=== PATIENT | female | born 1965 | race Caucasian/White ===

== ENCOUNTER 2017-10-21 22:17 | Observation (INO) ==
[2017-10-21 23:01] LABS: Basophils # 0.1 K/mcL (0.0-0.2); Basophils % 0.7 %; Eosinophils # 0.4 K/mcL (0.0-0.6); Eosinophils % 3.1 %; Hematocrit 40.9 % (35.3-44.9); Hemoglobin 13.3 g/dL (11.5-15.4); Immature Granulocytes % 0.3 % (0-4); Lymphocytes # 3.9 K/mcL (0.6-4.6); Lymphocytes % 32.9 %; Mean Corpuscular HGB Conc 32.5 g/dL (31.6-35.5); Mean Corpuscular Hemoglobin 27.8 pg (28.0-33.3); Mean Corpuscular Volume 85.6 fL (83.0-100.0); Mean Platelet Volume 10.3 fL (9.4-12.4); Monocytes # 0.8 K/mcL (0.0-1.3); Monocytes % 6.8 %; Neutrophils # 6.7 K/mcL (1.6-8.9); Platelet Count 341 K/mcL (140-400); Red Blood Count 4.78 M/mcL (3.82-4.97); Red Cell Distribution Width 13.3 % (11.5-14.5); Segmented Neutrophils % 56.2 %
[2017-10-21 23:05] LABS: Prothrombin Time 10.9 Seconds (9.4-12.1)
[2017-10-21 23:08] LABS: Activated Partial Thrombo Time 31.3 Seconds (26.0-36.0)
[2017-10-21 23:12] LABS: BUN/Creatinine Ratio 24 (6-26); Blood Urea Nitrogen 12 mg/dL (6-20); Calcium 9.1 mg/dL (8.6-10.3); Carbon Dioxide 23 mEq/L (23-29); Chloride 104 mEq/L (98-107); Glucose 208 mg/dL (70-105); Osmolality,Calculated 288 (280-300); Potassium 3.8 mEq/L (3.5-5.1); Sodium 136 mEq/L (136-145); eGFR For African Americans > 60 (> 60); eGFR For Non-African Americans > 60 (> 60)
[2017-10-21 23:14] LABS: Troponin I < 0.03 ng/mL (< 0.04)
--- NOTE | 2017-10-21 23:20 | Emergency Department Note ---
Disposition Clinical Impression: Chest pain Qualifiers: Chest pain type: unspecified Qualified Code(s): R07.9 - Chest pain, unspecified Type 2 diabetes mellitus Qualifiers: Diabetes mellitus complication status: without complication Diabetes mellitus intermodal dispatcher insulin use: without nursing home use Qualified Code(s): E11.9 - Type 2 diabetes mellitus without complications Disposition: Admitted As Inpatient Condition: Good Referrals: Oren Cates DO [Primary Care Provider] - Time of Disposition: 23:46 Chest Pain HPI - General Chief Complaint: ED Chest Pain Stated Complaint: Chest Pain Time Seen by Provider: 10/21/17 22:21 Source: patient Limitations: no limitations Vital Signs Reviewed: Yes Nursing Notes Reviewed: Yes - History of Present Illness HPI Narrative: Ms Sexton is a 52 yo F who presents with "achy and sharp" left upper chest pain that radiates to her neck, arm, and back. Patient denies cardiac hx, smoking, htn, hld, or family members who've had early age cardiac disease. Patient states that she was just getting done eating dinner and driving home when her pain started. Severity is 5-7/10. She denies that the pain changes with position, inhalation, or is reproducible when she pushes on it. She's had intermittent chest pain for the last month or so. Previously her pain has resolved with ASA, but she has not taken ASA today to resolve her symptoms. Patient denies SOB, nausea, vomiting, fever, chills, weight loss, orthopnea, PND , leg swelling or chest trauma. Severity scale (1-10): 4 - Related Data Allergies Allergy/AdvReac Type Severity Reaction Status Date / Time Penicillins Allergy Hives Verified 10/21/17 22:19 All systems ED: reviewed and negative except as stated. Review of Systems: As Per HPI Chest Pain PMH - Past Medical History Medical history: Reports: diabetes, GERD, hypertension Psychiatric history: Reports: no psych history - Social History Smoking Status: Never smoker Alcohol use: Reports: none Drug use: Reports: none Physical Exam - General Limitations: no limitations General appearance: alert, in no apparent distress - Head Head exam: atraumatic, normocephalic, normal inspection - Eye Eye exam: Present: normal appearance, PERRL, EOMI - ENT ENT exam: normal exam, normal oropharynx, mucous membranes moist - Chest Chest inspection: Present: normal inspection, symmetric chest wall rise, other ( pain is not reproducible. No visible trauma to chest wall.) - Respiratory Respiratory exam: Present: normal lung sounds bilaterally. Absent: respiratory distress, wheezes, stridor, accessory muscle use, prolonged expiratory phase - Cardiovascular Cardiovascular exam: Present: regular rate, normal rhythm, normal heart sounds. Absent: bradycardia, tachycardia, irregular rhythm, systolic murmur, diastolic murmur, rubs, gallop, JVD - Abdominal Exam Abdominal exam: Present: soft, Non-Tender. Absent: tenderness, distention, guarding, rebound, rigidity - Extremities Exam Extremities exam: Present: normal inspection, full ROM, normal capillary refill. Absent: tenderness, pedal edema Course Course Narrative: Cardiac workup pending. - Reevaluation(s) Reevaluation #1: Initial cardiac workup negative, but due to hx of HTN and diabetes will admit for further workup. Dr. Loya has accepted patient. Time: 00:36 Vital Signs Temperature 98.6 F 10/21/17 22:19 Pulse Rate 92 10/21/17 22:19 Respiratory Rate 16 10/21/17 22:19 Blood Pressure 161/97 10/21/17 22:19 O2 Sat by Pulse Oximetry 99 10/21/17 22:19 Temperature 98.6 F 10/21/17 22:19 Pulse Rate 100 10/22/17 00:49 Respiratory Rate 16 10/21/17 22:19 Blood Pressure 129/81 10/22/17 00:49 O2 Sat by Pulse Oximetry 96 10/22/17 00:49 Oxygen Delivery Oxygen Delivery Room Air Chest Pain - Medical Records Medical records reviewed: Yes I reviewed the patient's medical records. - Lab Data Lab results reviewed: Yes I reviewed the patient's lab results. Result diagrams: 10/21/17 22:29 10/21/17 22:29 Lab Results 10/21/17 10/21/17 10/21/17 Range/Units 22:29 22:29 22:29 WBC 11.9 H (4.3-11.1) K/mcL RBC 4.78 (3.82-4.97) M/mcL Hgb 13.3 (11.5-15.4) g/dL Hct 40.9 (35.3-44.9) % MCV 85.6 (83.0-100.0) fL MCH 27.8 L (28.0-33.3) pg MCHC 32.5 (31.6-35.5) g/dL RDW 13.3 (11.5-14.5) % Plt Count 341 (140-400) K/mcL MPV 10.3 (9.4-12.4) fL Immature Gran % 0.3 (0-4) % Seg Neutrophils % 56.2 % Lymphocytes % 32.9 % Monocytes % 6.8 % Eosinophils % 3.1 % Basophils % 0.7 % Neutrophils # 6.7 (1.6-8.9) K/mcL Lymphocytes # 3.9 (0.6-4.6) K/mcL Monocytes # 0.8 (0.0-1.3) K/mcL Eosinophils # 0.4 (0.0-0.6) K/mcL Basophils # 0.1 (0.0-0.2) K/mcL PT 10.9 (9.4-12.1) Seconds INR 1.0 APTT 31.3 (26.0-36.0) Seconds Sodium 136 (136-145) mEq/L Potassium 3.8 (3.5-5.1) mEq/L Chloride 104 (98-107) mEq/L Carbon Dioxide 23 (23-29) mEq/L BUN 12 (6-20) mg/dL Creatinine 0.49 L (0.60-1.20) mg/dL Est GFR ( Amer) > 60 (> 60) Est GFR (Non-Af Amer) > 60 (> 60) BUN/Creatinine Ratio 24 (6-26) Glucose 208 H (70-105) mg/dL Calculated Osmolality 288 (280-300) Calcium 9.1 (8.6-10.3) mg/dL Troponin I < 0.03 (< 0.04) ng/mL - Radiology Data Radiology results reviewed: Yes I reviewed the patient's radiology results. Chest X-Ray 10/21/17 22:41 IMPRESSION: Negative portable study. D/ / Martha Barba Cha, MD / Martha Barba Cha, MD Interpreting Provider: Martha Barba Cha, MD - EKG Data EKG attestation: Yes I reviewed and interpreted this EKG. EKG shows normal: sinus rhythm Rate: normal Rhythm: NSR When compared to previous EKG there are: no significant changes Interpretation: no acute changes, normal EKG Heart Score - Score History: Slightly Suspicious EKG: Normal Age: 45-65 Risk Factors: 1-2 risk factors Troponin: 1-3x normal limit HEART Score Total: 3 Attestation Statement - Attestation Attestation: I, Germán Duffy MD, personally evaluated this patient and discussed their management with the resident physician. I reviewed the resident's note and agree with the documented findings, medical decision making, and plan of care. 52-year-old female presents to the emergency department with a complaint of left -sided chest pain which she describes as a dull aching discomfort. Pain started about 8:30 this evening while driving. The pain radiates up into the left shoulder and the left side of the neck. Some nausea and mild shortness of breath. No diaphoresis. No prior history of any cardiac problems. She does have a history of hypertension and diabetes. Patient states that she had a similar episode about 2 weeks ago that was not as severe. She took a low-dose aspirin and went to bed and the pain resolved. She rated the pain a 4 out of 10 at the worst. At present she rates the pain a 2 out of 10. On examination patient is a well-developed well-nourished well-appearing female in no acute distress. She is alert and oriented 3. There is no cyanosis or diaphoresis. Chest is nontender to palpation. Breath sounds are clear and equal bilaterally. Heart regular rate and rhythm. Abdomen soft and nontender with normal bowel sounds. EKG shows a normal sinus rhythm with a rate of 89. No acute ST segment elevation or depression. No ischemic changes. Normal EKG. Chest x-ray negative. Labs reviewed. Troponin normal. Patient was given aspirin 324 mg and sublingual nitroglycerin. The hospitalist , Dr. Loya, was consulted and accepted admission of the patient.
[2017-10-22] MEDS ORDERED: Aspirin 81 MG TAB.CHEW PO STA (00:01)
[2017-10-22] MEDS ORDERED: Nitroglycerin 0.4 MG TAB.SUBL SL ONE (00:02)
[2017-10-22] MEDS ORDERED: *HR* OxyCODONE Immed Rel 5 MG TABLET PO PRN (03:01)
[2017-10-22] MEDS ORDERED: *HR* HYDROcodone/Acet 5/325 mg TABLET PO PRN (03:01)
[2017-10-22] MEDS ORDERED: Naloxone 0.4 MG/ML INJ IVP PRN (03:01)
[2017-10-22] MEDS ORDERED: Nitroglycerin 0.4 MG TAB.SUBL SL PRN (03:09)
--- NOTE | 2017-10-22 03:11 | Internal Med History&Physical ---
Date of Encounter: 10/22/17 Time of Encounter: 03:10 Assessment and Plan (1) Chest pain Current visit: Yes Status: Acute 52/female History of diabetes, hypertension, dyslipidemia, Admitted with chest pain. On examination: Heart/lung examination is within a normal limit. Assessment: Chest pain to rule out ACS. Plan: Admit as observation. Aspirin/metoprolol/statin/nitroglycerin. Echocardiogram. Cycle troponin. If 3 troponin negative/echocardiogram normal: Consider stress test. I have examined this patient in the emergency department to #1. Patient's and daughter were at bedside. Plan of care explained to them and then they verbalized understanding Qualifiers: Chest pain type: unspecified Qualified Code(s): R07.9 - Chest pain, unspecified (2) Hypertension Current visit: Yes Status: Acute Patient's blood pressure is within acceptable range. patient's home dose his lisinopril We will restart lisinopril. Qualifiers: Hypertension type: essential hypertension Qualified Code(s): I10 - Essential (primary) hypertension (3) Type 2 diabetes mellitus Current visit: Yes Status: Acute Patient is known to have a type 2 diabetes mellitus. Her recent hemoglobin A1c was 6.7. At this point we will hold her antidiabetic medication in the hospital setting. We will start her on low-dose insulin regimen. We will follow the recommendation from subcutaneous insulin order set Qualifiers: Diabetes mellitus complication status: without complication Diabetes mellitus half-way insulin use: without medical terminologist use Qualified Code(s): E11.9 - Type 2 diabetes mellitus without complications (4) DVT prophylaxis Current visit: Yes Status: Acute SCD: Medical decision making: Patient has a moderate to severe risk of worsening in spite of being on appropriate medication to the underlying complex comorbid conditions. Internal Medicine - H&P: HPI Chief complaint: Chest pain Admitted From: Emergency Dept Plans for Post Hospital Care: Home History of present illness: PCP: Dr Cates DM Educator follow up. 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 Patient was going home with her daughter after dinner and on her way to her home she started experiencing retrosternal/left precordial chest pain. This pain was achy and sharp in nature. The pain was radiating to her neck, arms and back. Patient has a strong family history of early age cardiac disease the pain was persistent. Patient denies nausea, vomiting, fever, chills , weight loss, orthopnea PND, leg swelling or chest trauma. Patient came to emergency room for further evaluation. Workup in the emergency department: Patient was evaluated. Basic labs were drawn. EKG was within acceptable range. First set of troponin was negative. Electrolytes and hemoglobin/hematocrit was stable. Reason for admission: Chest pain to rule out ACS. Heart score 3. Family history: Strong family history for early onset cardiac disease. Past Med Surg Social Fam HX - Past Medical History Medical history: diabetes, GERD, hypertension Psychiatric history: no psych history - Past Surgical History Surgical History: cholecystectomy - Social History Smoking Status: Never smoker Smokeless Tobacco Status: No Alcohol use: none Drug use: none - Family History Mother Hx Family Cardiac Disorders: Yes (HTN) Hx Family Respiratory Disorders: Yes (COPD) Hx Family Cancer: Yes (lung) Internal Medicine - H&P: Meds Insulin Degludec [Tresiba Flextouch U-100] 18 units SQ HS 10/22/17 [History] Lisinopril [Zestril] 10 mg PO DAILY 10/22/17 [History] Metformin HCl [Glucophage] 1,000 mg PO BID 10/22/17 [History] Victoza 3-Haja 1.8 units SQ DAILY 10/22/17 [History] 3 Allergy/AdvReac Type Severity Reaction Status Date / Time Penicillins Allergy Hives Verified 10/21/17 22:19 All Systems PM: A 10-system review of systems was performed and is negative for pertinent findings except as documented above in the HPI. - Constitutional Constitutional: no chills, no fever(s), no night sweats - EENT Eyes: no change in vision, no discharge, no pain, no photophobia Ears: no ear discharge, no ear pain, no tinnitus Nose, mouth and throat: no dysphagia, no nasal discharge, no neck pain, no sore throat - Cardiovascular Cardiovascular ROS IM: chest pain, diaphoresis, lightheadedness, palpitations, no dyspnea, no syncope - Respiratory Respiratory: no cough, no dyspnea, no wheezing, no excessive phlegm production - Gastrointestinal Gastrointestinal: no abdominal pain, no diarrhea, no hematemesis, no hematochezia, no melena, no nausea, no vomiting - Genitourinary Genitourinary: no change in urinary stream, no dysuria, no flank pain, no hematuria - Musculoskeletal Musculoskeletal ROS IM: no numbness, no tingling - Integumentary Integumentary IM: no rash, no unusual bruising - Neurological Neurological ROS: no confusion, no convulsions, no focal weakness, no numbness, no tingling, no tremor(s) - Hematologic/Lymphatic Hematologic/Lymphatic: no easy bruising - Constitutional Vitals: Temp Pulse Resp BP Pulse Ox 98.3 F 95 17 118/74 94 10/22/17 01:02 10/22/17 01:02 10/22/17 01:02 10/22/17 01:02 10/22/17 01:02 General appearance: Present: A&O X 3, pleasant, no acute distress, answers questions appropriately - Head Head exam: Present: atraumatic, normocephalic - Eye Eye exam: Present: PERRL, conjuntiva pink, sclera anicteric Pupils: Present: PERRL - Neck Neck exam general surgery: Present: supple, trachea midline. Absent: lymphadenopathy - Respiratory Respiratory exam: Present: CTAB. Absent: accessory muscle use, rales, rhonchi, wheezes - Cardiovascular Cardiovascular exam: Present: RRR, +S1, +S2. Absent: diastolic murmur, gallop, rubs, systolic murmur - GI/Abdominal GI/Abdominal exam: Present: normal bowel sounds, soft, no peritoneal signs. Absent: distended, tenderness - Extremities Exam Extremities exam: Present: warm, radial pulses palpable and symmetrical. Absent : calf tenderness, cyanotic, pedal edema - Neurological Exam Neurological exam: Present: CN II-XII intact, oriented X3, no focal deficits. Absent: pronater drift, facial droop, speech deficit - Skin Skin exam: Present: dry, intact Internal Med - H&P Results - Labs CBC & Chem 7: 10/21/17 22:29 10/21/17 22:29
[2017-10-22] MEDS ORDERED: D5% in Water 1,000 ML IVC PRN (03:24)
[2017-10-22] MEDS ORDERED: Dextrose Gel 15 GM/37.5 ML TUBE PO PRN ×2 (03:24)
[2017-10-22] MEDS ORDERED: *HR* Dextrose 50 % in Water (Syg) 50 ML SYRINGE IVP PRN (03:24)
[2017-10-22 04:34] LABS: Basophils # 0.1 K/mcL (0.0-0.2); Basophils % 0.8 %; Eosinophils # 0.4 K/mcL (0.0-0.6); Hematocrit 36.2 % (35.3-44.9); Hemoglobin 11.9 g/dL (11.5-15.4); Immature Granulocytes % 0.3 % (0-4); Immature Platelets 2.9 % (1.1-6.1); Lymphocytes # 3.8 K/mcL (0.6-4.6); Lymphocytes % 36.2 %; Mean Corpuscular HGB Conc 32.9 g/dL (31.6-35.5); Mean Corpuscular Volume 85.2 fL (83.0-100.0); Mean Platelet Volume 10.3 fL (9.4-12.4); Monocytes # 0.8 K/mcL (0.0-1.3); Monocytes % 8.1 %; Neutrophils # 5.3 K/mcL (1.6-8.9); Platelet Count 291 K/mcL (140-400); Red Blood Count 4.25 M/mcL (3.82-4.97); Red Cell Distribution Width 13.4 % (11.5-14.5); Segmented Neutrophils % 50.6 %
[2017-10-22 04:41] LABS: Activated Partial Thrombo Time 29.5 Seconds (26.0-36.0); INR 0.9
[2017-10-22 04:42] LABS: Alanine Aminotransferase 9 Units/L (7-52); Albumin 3.6 g/dL (3.5-5.7); Albumin/Globulin Ratio 1.8 (1.1-2.2); Alkaline Phosphatase 86 Units/L (34-104); Aspartate Amino Transferase 12 Units/L (13-39); BUN/Creatinine Ratio 30 (6-26); Bilirubin,Total 0.3 mg/dL (0.3-1.0); Blood Urea Nitrogen 12 mg/dL (6-20); Calcium 8.8 mg/dL (8.6-10.3); Carbon Dioxide 23 mEq/L (23-29); Chloride 106 mEq/L (98-107); Cholesterol 120 mg/dL (< 200); Glucose 112 mg/dL (70-105); HDL Cholesterol 30 mg/dL (40-59); LDL Cholesterol,Calculated 60 mg/dL (0-99); Magnesium 1.7 mg/dL (1.6-2.6); Osmolality,Calculated 285 (280-300); Phosphorous 4.2 mg/dL (2.7-4.5); Potassium 3.5 mEq/L (3.5-5.1); Sodium 137 mEq/L (136-145); Total Protein 5.6 g/dL (6.4-8.9); Triglycerides 148 mg/dL (< 150); eGFR For African Americans > 60 (> 60); eGFR For Non-African Americans > 60 (> 60)
[2017-10-22] MEDS: Aspirin Enteric Coated 81 MG Tablet PO SCH (08:50)
[2017-10-22] MEDS: Insulin LISPRO 300 UNITS/3 ML VIAL SQ SCH ×3 (08:52→17:31)
[2017-10-22] MEDS: Acetaminophen 325 MG TABLET PO PRN (09:03)
[2017-10-22] MEDS ORDERED: Acetaminophen/Butalbital/CaffeineTABLET PO ONE (11:04)
--- NOTE | 2017-10-22 15:06 | Internal Med Progress Note ---
Date of Encounter: 10/22/17 Time of Encounter: 11:00 - Assessment and plan (1) Chest pain Current Visit: Yes Status: Acute Assessment and plan: Pt presented to the emergency department after driving home from dinner with her daughter. She reports dull aching chest pain midsternal, radiating to his left back, left neck and shoulder. Pain was improved by rest and nitroglycerin. Pain was worsened by activity. Patient reports that she has been on Prevacid for years was recently changed to Protonix last week. Chest x-ray was negative for any acute disease process, and EKG is negative for any ST changes, normal sinus rhythm. Echocardiogram shows an LVEF of 55-60% with mild LVDD, mild MR. Patient's strong family history of coronary artery disease, personal history of hypertension, type 2 diabetes. Patient will have stress test tomorrow. Continue telemetry. Aspirin and nitroglycerin for chest pain Stress test tomorrow. Consider cardiology consult based on results. Qualifiers: Chest pain type: unspecified Qualified Code(s): R07.9 - Chest pain, unspecified (2) DVT prophylaxis Current Visit: Yes Status: Acute Assessment and plan: Encourage early ambulation. (3) Hypertension Current Visit: Yes Status: Acute Assessment and plan: Well-controlled. Continue home medications. Qualifiers: Hypertension type: essential hypertension Qualified Code(s): I10 - Essential (primary) hypertension (4) Type 2 diabetes mellitus Current Visit: Yes Status: Acute Assessment and plan: A1c 6.7% in August. Continue home medications. Qualifiers: Diabetes mellitus complication status: without complication Diabetes mellitus penitentiary insulin use: without termite control technician use Qualified Code(s): E11.9 - Type 2 diabetes mellitus without complications - Time Spent With Patient less than 15 minutes - Subjective Interval history: Pt was seen and assessed at 1100a.m. Pt is alert, awake, oriented, answers questions appropriately. She reports chest pain as a dull ache in the left chest with radiation to back/scapula and into left neck and left shoulder. STates that it is relieved with rest and somewhat with NTG in the ED, worsened by activity. Pt states that in the last week she has changed her PPI from Prevacid that she had been on for years to Protonix. She denies chest pain currently and denies SOB, n/v/d, diaphoresis, abd pain, peripheral edema, or dizziness. - Constitutional Vitals: Temp Pulse Resp BP Pulse Ox 97.9 F 77 16 125/82 96 10/22/17 11:39 10/22/17 11:39 10/22/17 11:39 10/22/17 11:39 10/22/17 11:39 General appearance: Present: A&O X 3, pleasant, no acute distress, answers questions appropriately Internal Medicine: Result - Labs CBC & Chem 7: 10/22/17 03:23 10/22/17 03:23 Labs: Short CBC 10/22/17 Range/Units 03:23 WBC 10.4 (4.3-11.1) K/mcL Hgb 11.9 (11.5-15.4) g/dL Hct 36.2 (35.3-44.9) % Plt Count 291 (140-400) K/mcL Neutrophils # 5.3 (1.6-8.9) K/mcL BMP 10/22/17 03:23 Sodium 137 Potassium 3.5 Chloride 106 Carbon Dioxide 23 BUN 12 Creatinine 0.40 L Glucose 112 H Calcium 8.8 Cardiac Enzymes 10/22/17 10/22/17 Range/Units 03:23 09:28 Troponin I < 0.03 < 0.03 (< 0.04) ng/mL Liver Function 10/22/17 Range/Units 03:23 Total Bilirubin 0.3 (0.3-1.0) mg/dL AST 12 L (13-39) Units/L ALT 9 (7-52) Units/L Alkaline Phosphatase 86 (34-104) Units/L Albumin 3.6 (3.5-5.7) g/dL - ABG Interpretation ABG results: PT/INR, D-dimer PT 10.0 Seconds (9.4-12.1) 10/22/17 03:23 - Impressions Impressions Echocardiogram 10/22/17 03:07 Impressions: LVEF 55-60%. Mild left ventricular diastolic dysfunction. Normal right ventricular structure and function. Mild mitral regurgitation. Left Ventricular Wall Motion: Rest Echo Findings All wall segments showed normal motion. Findings: Study Quality * Technically adequate exam. ECG Findings * Normal sinus rhythm. Left Ventricle * LVEF 55-60%. * Mild left ventricular diastolic dysfunction. Right Ventricle * Normal right ventricular structure and function. Left Atrium * Normal left atrial size. Right Atrium * Normal right atrial size. Interatrial Septum * No evidence of PFO by color Doppler. Aortic Valve * Trileaflet aortic valve with normal function. Mitral Valve * Mild mitral regurgitation. Tricuspid Valve * Mild tricuspid regurgitation. * Estimated RVSP is 18 mmHg. * Estimated RA pressure is 5 mmHg. * No pulmonary hypertension. Pulmonic Valve * Pulmonic valve not well visualized. Aorta * Normally sized aortic root. Pericardium * The pericardium appears normal. IVC * Normal IVC dimensions and inspiratory collapse. Consult Discharge Plan - Plan Referrals: Oren Cates DO [Primary Care Provider] -
[2017-10-23] MEDS ORDERED: Regadenoson 0.4 MG/5 ML SYRINGE IVP ONE ×2 (06:15→12:48)
[2017-10-23] MEDS: Acetaminophen 325 MG TABLET PO PRN ×2 (07:27→16:54)
[2017-10-23] MEDS: Aspirin Enteric Coated 81 MG Tablet PO SCH (07:27)
[2017-10-23] MEDS: Insulin LISPRO 300 UNITS/3 ML VIAL SQ SCH ×3 (07:28→16:53)
[2017-10-23] MEDS ORDERED: SUMAtriptan succinate 25 MG TABLET PO PRN (07:51)
[2017-10-23 15:27] VITALS: BP 109/72
--- NOTE | 2017-10-23 16:43 | Discharge Summary ---
Orders not resulted at time of discharge: Pending orders 10/22/17 10:54 NM heath perf SPECT multi [NM] Routine Date of Encounter: 10/23/17 Time of Encounter: 13:15 - Discharge Diagnosis (1) Chest pain Priority: Primary Status: Acute Comments: Patient denies chest pain since arrival. A stress test today was negative for ischemia or infarct with gated EF was 65%. Suspect the chest pain is most likely reflux related due to recent medication changes. Abdomen the patient follow up with primary care for continued monitoring. Qualifiers: Chest pain type: unspecified Qualified Code(s): R07.9 - Chest pain, unspecified (2) Hypertension Priority: Secondary Status: Acute Comments: Chronic. Well controlled. Continue home medications. Qualifiers: Hypertension type: essential hypertension Qualified Code(s): I10 - Essential (primary) hypertension (3) Type 2 diabetes mellitus Priority: Secondary Status: Acute Comments: Chronic. A1c was 6.7 in August. Patient reports multiple recent medication changes. Follow with primary care and continue home medications and doses. Qualifiers: Diabetes mellitus complication status: without complication Diabetes mellitus exterminator helper insulin use: without exterminator helper use Qualified Code(s): E11.9 - Type 2 diabetes mellitus without complications (4) DVT prophylaxis Priority: Secondary Status: Acute Comments: Patient has been ambulatory. Hospital course: Ms. Sexton is a 52 year old female with past medical history of diabetes, GERD, hypertension. Presented to the emergency department with chest pain driving home after dinner with her daughter. Pain was dull, aching and midsternal area radiating the left back, left neck and shoulder. She reports the pain was improved by rest and nitroglycerin and was worsened by activity. Patient recently changed from Prevacid to Protonix last week and reports an increase in symptoms since change of medication. Estimated free was negative for any acute process, EKG was negative for ST changes and was normal sinus. Echocardiogram showed preserved ejection fraction with mild LVDD and mild MR. stress test was negative for infarct or ischemia. Suspected pain was related to GERD symptoms since patient had eaten dinner recently and epigastric area is tender to palpation, as well as describing recent medication change. Recommend the patient follow-up with primary care provider in the next 7-10 days for a recheck. Vitals and labs are stable and within normal limits. Patient is appropriate for discharge. Discharge discussed with: patient, nurse - Time Spent with Patient Total time spent providing and/or coordinating discharge services: Less than 30 minutes - Discharge Medications Home Medications: Dapagliflozin Propanediol [Farxiga] 10 mg PO DAILY 10/22/17 [History] Empagliflozin [Jardiance] 25 mg PO DAILY 10/22/17 [History] Insulin Degludec [Tresiba Flextouch U-100] 18 units SQ HS 10/22/17 [History] Lansoprazole [Prevacid] 30 mg PO DAILY 10/22/17 [History] Liraglutide [Victoza 3-Haja] 1.8 mg SQ DAILY 10/22/17 [History] Lisinopril [Zestril] 10 mg PO DAILY 10/22/17 [History] Meloxicam [Mobic] 15 mg PO DAILY 10/22/17 [History] Metformin HCl [Glucophage] 1,000 mg PO BID 10/22/17 [History] Pantoprazole Sodium [Protonix] 40 mg PO DAILY 10/22/17 [History] Aspirin Enteric Coated [Aspirin EC] 81 mg PO DAILY tablet. 10/23/17 [Rx] Allergies/Adverse Reactions: 3 Allergy/AdvReac Type Severity Reaction Status Date / Time Penicillins Allergy Hives Verified 10/21/17 22:19 Date of admission: 10/22/17 00:34 Primary care physician: Oren Cates, Discharging clinician: Jessica Nunez Anticipated date of discharge: 10/23/17 - Constitutional Vitals: Temp Pulse Resp BP Pulse Ox 99.5 F 85 15 109/72 95 10/23/17 15:24 10/23/17 15:24 10/23/17 15:24 10/23/17 15:24 10/23/17 15:24 General appearance: Present: cooperative, A&O X 3, pleasant, no acute distress, answers questions appropriately - Head Head exam: Present: atraumatic, normal inspection, normocephalic - Eye Eye exam: Present: normal appearance, conjuntiva pink, sclera anicteric - Neck Neck exam general surgery: Present: supple, trachea midline. Absent: lymphadenopathy, tenderness - Respiratory Respiratory exam: Present: CTAB. Absent: accessory muscle use, rales, respiratory distress, rhonchi, wheezes - Cardiovascular Cardiovascular exam: Present: RRR, +S1, +S2. Absent: diastolic murmur, gallop, rubs, systolic murmur - GI/Abdominal GI/Abdominal exam: Present: normal bowel sounds, soft. Absent: distended, hepatomegaly, tenderness - Extremities Exam Extremities exam: Present: normal capillary refill, normal inspection, warm, radial pulses palpable and symmetrical. Absent: calf tenderness, cyanotic, pedal edema, tenderness - Neurological Exam Neurological exam: Present: alert, oriented X3, no focal deficits. Absent: facial droop, speech deficit - Skin Skin exam: Present: dry, intact, normal color, warm. Absent: rash - Patient Status Disposition: Home, Self-Care Condition: Good Functional capacity at discharge: independent ambulation Overall status at discharge: patient is back to baseline - Discharge Instructions Follow Up With: Oren Cates DO [Primary Care Provider] - Additional Instructions: Please follow up with your PCP in the next 7-10 days for a recheck. Return to the ER for any other problems or concerns, or if your symptoms return or worsen. Take your normal medications and return to your normal diet and activities as tolerated. - Diet and Activity Activity: increase activity as tolerated Diet: diabetic diet
--- NOTE | 2017-10-24 20:04 | Electrocardiograph Report ---
[address] [place], [place] [address] Test Date: 2017-10-21 Pat Name: Betty Sexton Department: 104 Room: 3B Gender: F [employer] Director: : [id number] Requested By: Germán Duffy Order Number: [id number] Reading MD: Jacque Marquez Measurements Intervals [place] Rate: 89 P: 30 HI: 162 QRS: 4 QRSD: 82 T: 38 QT: 331 QTc: 378 Interpretive Statements SINUS RHYTHM Electronically Signed On 10-24-2017 20:03:18 EST by Jacque Marquez
== END 2017-10-23 17:34 | disposition home or self-care (01) ==
LOC: EMEROO 22:17 → 3BNU 22:17
PROVIDERS: ADMIT Internal Medicine; ATTEND Registered Nurse